=== PATIENT | male | born 1965 | race Caucasian/White ===

== ENCOUNTER 2022-12-23 08:16 | Day surgery (SDC) | payer BC ==
[2022-12-16 16:07] VITALS: BMI 28.0
[2022-12-23 08:43] VITALS: TEMP 96.7
[2022-12-23 08:58] LABS: Glucose,Whole Blood 149 mg/dL (70-110)
[2022-12-23] MEDS: LACTATED RINGERS 1,000 ML IV SCH ×2 (09:00→09:25)
[2022-12-23] MEDS ORDERED: PROPOFOL 10 MG/ML 20 ML VIAL IV ONE (09:27)
--- NOTE | 2022-12-23 09:47 | P.PCN ---
Date of Procedure: 12/23/22 Procedure(s) Performed: BRIEF HISTORY: Patient is a 57-year-old pleasant white male scheduled for an elective colonoscopy as a part of screening for colon cancer. PROCEDURE PERFORMED: Colonoscopy snare polypectomy. PREOPERATIVE DIAGNOSIS: Screening for colon cancer. IV sedation per Anesthesia. PROCEDURE: After informed consent was obtained, the patient, was brought into the endoscopy unit. IV sedation was administered by Anesthesia under continuous monitoring. Digital rectal examination was normal. Initially the Olympus CF-160 flexible video colonoscope was then inserted in the rectum, gradually advanced into the cecum without any difficulty. Careful examination was performed as the scope was gradually being withdrawn. Ileocecal valve and the appendiceal orifice were visualized and appeared normal. Prep was excellent. Mucosa of the cecum, we normal. In the ascending colon there were 2 polyps measuring between 4 mm and 5 mm in size removed by cold snare polypectomy. In the transverse colon there was a middle of 4 mm polyp removed by cold snare polypectomy. Rest of the ascending colon, transverse colon, descending colon, sigmoid colon, and rectum appeared normal. In the proximal rectum there was a 1 cm polyp removed by snare polypectomy. Retroflexion was performed in the rectum and no lesions were seen. The patient tolerated the procedure well. IMPRESSION: 5 mm and 4 mm ascending colon polyp status post polypectomy 4 mm transverse colon polyp status post-polypectomy 1 cm rectal polyp status post polypectomy RECOMMENDATIONS: Findings of this examination were discussed with the patient as well as his family. He was advised to follow with the biopsy results. If the biopsy results adenoma he can have a repeat colonoscopy in 3 years..
[2022-12-23 10:02] VITALS: RESP 16
[2022-12-23 10:19] VITALS: BP 121/79; PULSE 68
== END 2022-12-23 10:37 | disposition home or self-care (01) ==
LOC: ORWHC2ENDO 08:16
PROVIDERS: ATTEND Internal Medicine Gastroenterology
DX: Z12.11 Encounter for screening for malignant neoplasm of colon (principal); D12.2 Benign neoplasm of ascending colon; K62.1 Rectal polyp; I10 Essential (primary) hypertension; E11.9 Type 2 diabetes mellitus without complications; K21.9 Gastro-esophageal reflux disease without esophagitis; Z79.82 Long term (current) use of aspirin; Z79.899 Other long term (current) drug therapy
CPT/HCPCS: 88305; 45385; J2704

== ENCOUNTER 2023-05-19 21:13 | Emergency (ER) | payer BC ==
--- NOTE | 2023-05-19 21:36 | ED ---
General Adult HPI - General Stated complaint: rt ankle injury Time Seen by Provider: 05/19/23 21:35 Source: patient, RN notes reviewed Mode of arrival: ambulatory Limitations: no limitations - History of Present Illness Initial comments: 57-year-old male presents emergency Department with chief complaint right ankle injury. Patient states that he slipped on a wet.. Patient states that he may have twisted her ankle but states she's unsure he states is quite a bit of pain is right ankle acute on his back but has no complaint of back pain no head injury no loss conscious. Patient denies any other associated symptoms. Patient denies any blood thinners but he states he takes aspirin - Related Data Home Medications Medication Instructions Recorded Confirmed Ascorbic Acid [Vitamin C] 1,000 mg PO DAILY 12/16/22 12/23/22 Aspirin [Adult Low Dose Aspirin EC] 1 tab PO DAILY 12/16/22 12/23/22 Cholecalciferol (Vitamin D3) 1 tab PO DAILY 12/16/22 12/23/22 [Vitamin D3] RABEprazole SODIUM [Aciphex] 20 mg PO DAILY 12/16/22 12/23/22 Simvastatin [Zocor] 20 mg PO HS 12/16/22 12/23/22 amLODIPine BESYLATE/BENAZEPRIL 1 cap PO DAILY 12/16/22 12/23/22 [amLODIPine BESYLATE/BENAZEPRIL 5-20 mg] glipiZIDE [glipiZIDE ER] 10 mg PO DAILY 12/16/22 12/23/22 metFORMIN HCL ER [Glucophage XR] 1,000 mg PO BID 12/16/22 12/23/22 Allergies Allergy/AdvReac Type Severity Reaction Status Date / Time No Known Allergies Allergy Verified 05/19/23 21:35 Review of Systems ROS Statement: Those systems with pertinent positive or pertinent negative responses have been documented in the HPI. ROS Other: All systems not noted in ROS Statement are negative. Past Medical History Past Medical History: Diabetes Mellitus, GERD/Reflux, Hypertension History of Any Multi-Drug Resistant Organisms: None Reported Past Surgical History: Tonsillectomy Additional Past Surgical History / Comment(s): kidney stone removed Past Anesthesia/Blood Transfusion Reactions: No Reported Reaction Additional Past Anesthesia/Blood Transfusion Reaction / Comment(s): no blood transfusion Past Psychological History: No Psychological Hx Reported Smoking Status: Never smoker Past Alcohol Use History: None Reported Past Drug Use History: None Reported General Exam - General Exam Comments Initial Comments: Visual Physical Exam Vital signs reviewed General: Well-appearing, nontoxic, no acute distress. Head: Normocephalic, atraumatic Eyes: PERRLA, EOMI ENT: Airway patent Chest: Nonlabored breathing Skin: No visual rash, normal skin tone Neuro: Alert and oriented 3 Musculoskeletal: No gross abnormalities Limitations: no limitations General appearance: alert, in no apparent distress Head exam: Present: atraumatic, normocephalic, normal inspection Respiratory exam: Present: normal lung sounds bilaterally. Absent: respiratory distress, wheezes, rales, rhonchi, stridor Cardiovascular Exam: Present: regular rate, normal rhythm, normal heart sounds. Absent: systolic murmur, diastolic murmur, rubs, gallop, clicks Extremities exam: Present: other (Right ankle there is diffuse swelling, tenderness to medial and lateral malleoli region no foot tenderness no proximal tib-fib tenderness pain with range of motion) Course Vital Signs 05/19/23 05/19/23 21:34 22:59 Temperature 98.3 F Pulse Rate 95 79 Respiratory 18 18 Rate Blood Pressure 133/78 132/74 O2 Sat by Pulse 98 97 Oximetry Procedures - Orthopedic Splinting/Casting Injury #1 Side: right Lower Extremity Injury Location: short leg, ankle Lower Extremity Immobilizer: posterior splint, synthetic pre-padded splint Other Orthopedic Equipment: crutches Medical Decision Making - Medical Decision Making I completed the quick note portion of this chart signed Akil Tom PA-C Was pt. sent in by a medical professional or institution ([facility], [facility], urgent care, hospital, or detention...) When possible be specific @ -No Did you speak to anyone other than the patient for history (EMS, parent, family, police, friend...)? What history was obtained from this source @ -No Did you review nursing and triage notes (agree or disagree)? Why? @ -I reviewed and agree with nursing and triage notes Were old charts reviewed (outside hosp., previous admission, EMS record, old EKG, old radiological studies, urgent care reports/EKG's, detention records)? Report findings @ -No old charts were reviewed Differential Diagnosis (chest pain, altered mental status, abdominal pain women, abdominal pain men, vaginal bleeding, weakness, fever, dyspnea, syncope, headache, dizziness, GI bleed, back pain, seizure, CVA, palpatations, mental health, musculoskeletal)? @ -[right ankle fracture, sprain EKG interpreted by me (3pts min.). @ -[none X-rays interpreted by me (1pt min.). @ -[xray right ankle [address] interpreted by me (1pt min.). @ -None done U/S interpreted by me (1pt. min.). @ -None done What testing was considered but not performed or refused? (CT, X-rays, U/S, labs)? Why? @ -None What meds were considered but not given or refused? Why? @ -None Did you discuss the management of the patient with other professionals (professionals i.e. , PA, [facility], lab, RT, psych nurse, drug abuse social worker, carbon sequestration plant engineer, teacher, welfare officer, nurse outreach case manager)? Give summary @ -No Was smoking cessation discussed for >3mins.? @ -No Was critical care preformed (if so, how long)? @ -No Were there social determinants of health that impacted care today? How? (Homelessness, low income, unemployed, alcoholism, drug addiction, transportation, low edu. Level, literacy, decrease access to med. care, [facility], rehab)? @ -No Was there de-escalation of care discussed even if they declined (Discuss DNR or withdrawal of care, Hospice)? DNR status @ -No What co-morbidities impacted this encounter? (DM, HTN, Smoking, COPD, CAD, Cancer, CVA, ARF, Chemo, Hep., AIDS, mental health diagnosis, sleep apnea, morbid obesity)? @ -None Was patient admitted / discharged? Hospital course, mention meds given and route, prescriptions, significant lab abnormalities, going to OR and other pertinent info. @ -Discharge patient was splinted and will follow-up with orthopedics. Patient provided crutches, analgesics. Undiagnosed new problem with uncertain prognosis? @ -No Drug Therapy requiring intensive monitoring for toxicity (Heparin, Nitro, Insulin, Cardizem)? @ -No Were any procedures done? @ -No Diagnosis/symptom? @ -Right bimalleolar fracture Acute, or Chronic, or Acute on Chronic? @ -[Acute Uncomplicated (without systemic symptoms) or Complicated (systemic symptoms)? @ -Uncomplicated Side effects of treatment? @ -No Exacerbation, Progression, or Severe Exacerbation? @ -No Poses a threat to life or bodily function? How? (Chest pain, [place], [place], pneumonia, PE, COPD, DKA, ARF, appy, cholecystitis, CVA, Diverticulitis, Homicidal, Suicidal, threat to staff... and all critical care pts) @ -No Disposition Clinical Impression: Bimalleolar fracture of right ankle Disposition: HOME SELF-CARE Condition: Stable Instructions (If sedation given, give patient instructions): Ankle Fracture (ED) Additional Instructions: Please return to the Emergency Department if symptoms worsen or any other concerns. Is patient prescribed a controlled substance at d/c from ED?: No Referrals: Rony Stubbs DO [Primary Care Provider] - 1-2 days Tyler Ingram MD [STAFF PHYSICIAN] - 1-2 days
[2023-05-19 21:42] VITALS: RESP 18; TEMP 98.3
--- NOTE | 2023-05-19 22:02 | XR ---
EXAMINATION TYPE: XR ankle complete RT DATE OF EXAM: 05/19/2023 9:46 PM CLINICAL INDICATION:Male, 57 years old with history of pain; [facility] COMPARISON: None TECHNIQUE: XR ankle complete RT; ankle is imaged in frontal, lateral and oblique projections. FINDINGS/IMPRESSION: 1. Acute fracture of the medial malleolus and a oblique fracture through the fibula. There is mild d isplacement of each fracture. There is soft tissue swelling around the ankle. 2. Calcaneal plantar spurring and Achilles enthesophyte formation.
[2023-05-19] MEDS ORDERED: ACET/COD 300 MG/30 MG STARTER PACK 6 TAB BTL PO STA (22:20)
[2023-05-19] MEDS ORDERED: HYDROcodone/APAP 5-325MG 1 EACH TAB PO STA (22:20)
[2023-05-19 23:12] VITALS: BP 132/74; PULSE 79
== END 2023-05-19 23:00 | disposition home or self-care (01) ==
LOC: EC 21:13
DX: S82.841A Displaced bimalleolar fracture of right lower leg, initial encounter for closed fracture (principal); E11.9 Type 2 diabetes mellitus without complications; I10 Essential (primary) hypertension; K21.9 Gastro-esophageal reflux disease without esophagitis; Z79.82 Long term (current) use of aspirin; Z79.84 Long term (current) use of oral hypoglycemic drugs; Z79.899 Other long term (current) drug therapy; X50.1XXA Overexertion from prolonged static or awkward postures, initial encounter
CPT/HCPCS: 29505; 99283